=== PATIENT | female | born 2000 | race Caucasian/White ===

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

== ENCOUNTER 2020-08-29 19:27 | Emergency (ER) | payer MEDICAID, OTHER ==
[~2020-08-29] VITALS: Ht 160 cm; Wt 73.5 kg
[2020-08-29 19:35] VITALS: BP_SYST 119
[2020-08-29] MEDS ORDERED: IBUPROFEN 600 MG TABLET PO ONE (20:30)
[2020-08-29 21:02] VITALS: BP_SYST 120
== END 2020-08-29 21:01 | disposition home or self-care (01) ==
LOC: SED 19:27
DX: S86.911A Strain of unspecified muscle(s) and tendon(s) at lower leg level, right leg, initial encounter (principal); W18.39XA Other fall on same level, initial encounter; Y93.66 Activity, soccer; Y92.89 Other specified places as the place of occurrence of the external cause; Y99.8 Other external cause status
CPT/HCPCS: 73552; 99283

== ENCOUNTER 2021-03-13 17:01 | Emergency (ER) | payer MEDICAID, OTHER ==
[~2021-03-13] VITALS: Ht 160 cm; Wt 70.8 kg
[2021-03-13 17:05] VITALS: BP_SYST 114
[2021-03-13 20:49] LABS: EOSINOPHILS # (AUTO) 0.1 K/uL (0.0-0.4); MONOCYTES # (AUTO) 0.4 K/uL (0.0-1.0)
[2021-03-13 21:05] LABS: BASOPHILS % (AUTO) 0.4 % (0.0-2.0); EOSINOPHILS % (AUTO) 0.8 % (0.0-4.0); HEMATOCRIT 38.8 % (36-48); HEMOGLOBIN 13.3 g/dL (12.0-16.0); LYMPHOCYTES # (AUTO) 2.6 K/uL (1.0-5.5); LYMPHOCYTES % (AUTO) 32.6 % (20.5-51.5); MEAN CORPUSCULAR HEMOGLOBIN 32 pg (27-31); MEAN CORPUSCULAR HGB CONC 34 % (32-36); MEAN CORPUSCULAR VOLUME 93 fL (79.0-98.0); MONOCYTES % (AUTO) 4.8 % (1.7-9.3); NEUTROPHILS # (AUTO) 4.9 K/uL (1.8-7.7); NEUTROPHILS % (AUTO) 61.4 % (40.0-70.0); PLATELET COUNT (AUTO) 171 K/uL (130-430); RED BLOOD CELL COUNT(AUTO) 4.18 MIL/uL (4.2-6.2); RED CELL DISTRIBUTION WIDTH 12.9 % (9.0-15.0)
[2021-03-13 21:20] LABS: CALCIUM 8.7 mg/dL (8.4-11.0); CREATININE 0.91 mg/dL (0.55-1.30); POTASSIUM 4.8 mmol/L (3.5-5.1)
[2021-03-13 21:54] VITALS: BP_SYST 110
== END 2021-03-13 21:54 | disposition home or self-care (01) ==
LOC: SED 17:01
DX: S39.012A Strain of muscle, fascia and tendon of lower back, initial encounter (principal); R42 Dizziness and giddiness; V43.52XA Car driver injured in collision with other type car in traffic accident, initial encounter; Y93.89 Activity, other specified; Y92.89 Other specified places as the place of occurrence of the external cause; Y99.8 Other external cause status
CPT/HCPCS: 36415; 80048; 81025; 85025; 93005; 99284

== ENCOUNTER 2021-07-02 09:45 | Emergency (ER) | payer MEDICAID, SELFPAY ==
[~2021-07-02] VITALS: Ht 160 cm; Wt 71.2 kg
[2021-07-02 09:59] VITALS: BP_SYST 127
--- NOTE | 2021-07-02 10:00 | NUR ---
Patient to ER bed TENT1 to gown for evaluation. Side rails up.
--- NOTE | 2021-07-02 10:03 | NUR ---
ER at bedside examining patient.
--- NOTE | 2021-07-02 10:30 | NUR ---
PT PRESENTS TO ED C/O COUGH AND SORE THROAT
[2021-07-02 11:03] LABS: STREPTOCOCCUS A SCREEN (RAPID) NEGATIVE (NEGATIVE)
[2021-07-02] MEDS ORDERED: PSEU30TA36 PO (11:20)
[2021-07-02] MEDS ORDERED: IBUP-1969 PO (11:20)
[2021-07-02 11:40] VITALS: BP_SYST 120
--- NOTE | 2021-07-02 11:40 | NUR ---
Patient given written and verbal discharge instructions and verbalizes understanding. ER MD discussed with patient the results and treatment provided. Patient in stable condition. ID arm band removed. Rx of JASON AGIULERA given. Patient educated on pain management and to follow up with PMD. Pain Scale 0. Opportunity for questions provided and answered. Medication side effect fact sheet provided.
[2021-07-02 14:27] LABS: MONOTEST NEGATIVE (NEGATIVE)
== END 2021-07-02 11:40 | disposition home or self-care (01) ==
LOC: SED 09:45
DX: J02.8 Acute pharyngitis due to other specified organisms (principal); B97.89 Other viral agents as the cause of diseases classified elsewhere
CPT/HCPCS: 36415; 86308-TC; 86403; 87081; 99283

== ENCOUNTER 2021-07-21 22:08 | Emergency (ER) | payer MEDICAID, SELFPAY ==
[~2021-07-21] VITALS: Ht 160 cm; Wt 71.2 kg
[~2021-07-21 22:08] MED LIST: IBUP-1969 PO; PSEU30TA36 PO
[2021-07-21 22:15] VITALS: BP_SYST 125
--- NOTE | 2021-07-21 22:15 | NUR ---
Patient triaged and placed in waiting room. VSS and patient appears in no acute distress at this time. Accompanied by FAM MEMBER, awaiting available bed, and MD notified of need for MSE.
--- NOTE | 2021-07-21 23:23 | NUR ---
Patient to ER bed 5 to gown for evaluation. Side rails up. Report given to TOMMY ALICIA.
--- NOTE | 2021-07-21 23:30 | NUR ---
Security at the bedside to wand the pt.
--- NOTE | 2021-07-21 23:35 | NUR ---
PT BIB FRIEND FOR BEING SI. PT STATES SHE FELT SUICIDAL TODAY AND TOOK 500 OF TYLENOL AND 800 OF ADVIL DUE TO BEING SUICIDAL. PT TOOK THEM AT 2100 TODAY. THIS IS HER FIRST ATTEMPT. STATES SHE HAS BEEN DEPRESSED FOR OVER A YEAR. A&OX4. ACTING APPROPRIATELY AND VSS.
--- NOTE | 2021-07-21 23:50 | NUR ---
# 20 gauge angiocath placed TO RAC. Use of asceptic technique. Opsite placed over site. Blood return noted. Blood for lab drawn from site. Flushed with 10 cc of normal saline. No evidence of infiltration noted. Patient tolerated well.
--- NOTE | 2021-07-22 00:01 | NUR ---
Called Poison Control at [phone] and spoke with YUE. Per recommendations: CHECK TYLENOL LEVEL. USE MUCOMYST IF NEEDED Dr. PERDOMO notified. Will continue to monitor patient.
[2021-07-22] MEDS ORDERED: NACL 0.9% 1,000 ML IV ONE (00:15)
[2021-07-22 01:04] LABS: ALCOHOL, BLOOD < 3 mg/dL (<10)
[2021-07-22 01:31] LABS: ACETAMINOPHEN < 1 ug/mL (1-30)
[2021-07-22 01:46] LABS: CALCIUM 8.7 mg/dL (8.4-11.0); CREATININE 0.78 mg/dL (0.55-1.30); POTASSIUM 3.6 mmol/L (3.5-5.1)
[2021-07-22 01:53] LABS: HEMATOCRIT 41.6 % (36-48); HEMOGLOBIN 14.1 g/dL (12.0-16.0); MEAN CORPUSCULAR HEMOGLOBIN 31 pg (27-31); MEAN CORPUSCULAR VOLUME 90 fL (79.0-98.0); RED BLOOD CELL COUNT(AUTO) 4.61 MIL/uL (4.2-6.2); WHITE BLOOD COUNT (AUTO) 12.2 K/uL (4.8-10.8)
[2021-07-22 01:54] LABS: BASOPHILS % (AUTO) 1.3 % (0.0-2.0); EOSINOPHILS % (AUTO) 2.3 % (0.0-4.0); LYMPHOCYTES % (AUTO) 10.1 % (20.5-51.5); MEAN CORPUSCULAR HGB CONC 34 % (32-36); MONOCYTES % (AUTO) 2.4 % (1.7-9.3); NEUTROPHILS % (AUTO) 83.9 % (40.0-70.0); PLATELET COUNT (AUTO) 214 K/uL (130-430); RED CELL DISTRIBUTION WIDTH 12.7 % (9.0-15.0)
[2021-07-22 01:55] LABS: BASOPHILS # (AUTO) 0.2 K/uL (0.0-0.2); EOSINOPHILS # (AUTO) 0.3 K/uL (0.0-0.4); LYMPHOCYTES # (AUTO) 1.2 K/uL (1.0-5.5); MONOCYTES # (AUTO) 0.3 K/uL (0.0-1.0); NEUTROPHILS # (AUTO) 10.3 K/uL (1.8-7.7)
--- NOTE | 2021-07-22 02:30 | NUR ---
ER at bedside examining patient.
--- NOTE | 2021-07-22 02:50 | NUR ---
POISON CONTROL CALLED BACK. SPOKE WITH DEVIN. CLEARED FROM POISON CONTROL DUE TO THE LAB RESULTS.
--- NOTE | 2021-07-22 03:10 | NUR ---
HAND BRUSH FILLER WILL CALLED FOR A PSYCH EVAL. NOTE PUT IN BY WILL.
--- NOTE | 2021-07-22 05:00 | NUR ---
PT RESTING IN BED, VSS
[2021-07-22 05:39] LABS: BARBITURATE, URINE NEGATIVE (NEG <=200); BENZODIAZEPINE, URINE NEGATIVE (NEG <=150); CANNABINOID, URINE NEGATIVE (NEG <=50); COCAINE, URINE NEGATIVE (NEG <=150); METHAMPHETAMINES SCREEN,URINE NEGATIVE (NEG <=500); OPIATE, URINE NEGATIVE (NEG <=100); PHENCYCLIDINE SCREEN,URINE NEGATIVE (NEG <=25); UR TRICYCLIC ANTIDEPRESSANTS NEGATIVE (NEG <=300); URINE AMPHETAMINE NEGATIVE (NEG <=500); URINE METHADONE NEGATIVE (NEG <=200); URINE OXYCODONE SCREEN NEGATIVE (NEG <=100); URINE PROPOXYPHENE SCREEN NEGATIVE (NEG <=300)
--- NOTE | 2021-07-22 07:08 | NUR ---
REPORT GIVEN TO ARISTIDES ALICIA
--- NOTE | 2021-07-22 07:12 | NUR ---
PT WITH EYES CLOSED, EASILY AROUSABLE. FAMILY FRIEND AT BEDSIDE TO LOOK AFTER PATIENT. PT DENIES ANY PAIN, BUT CONTINUES TO REPORT SUICIDAL THOUGHTS AND FEELING DEPRESSED. NO PLAN OF ACTION AT THIS TIME. WAITING FOR PSYCH CONSULT, BREAKFAST ORDERED. WILL CONT TO MONITOR.
--- NOTE | 2021-07-22 08:07 | NUR ---
PSYCHOLOGIST-DR HDEZ AT BEDSIDE FOR EXAM.
--- NOTE | 2021-07-22 08:37 | NUR ---
Report given to Kendall ALICIA, updated on status, labs, and vitals. Pt stable for transfer.
--- NOTE | 2021-07-22 09:15 | NUR ---
pt ate breakfast 100%.
--- NOTE | 2021-07-22 09:46 | NUR ---
LUNCH ORDERED, PT INNAD. MCDANIEL.
--- NOTE | 2021-07-22 12:06 | NUR ---
Patient to be transferred to [facility]. Is being transferred due to higher level of care. Receiving facility has accepting physician and available space. ER physician has signed transfer form. Patient or responsible alliance party has agreed to transfer and signed form. Patient belongings inventoried and will be sent with patient. Copy of nursing notes, lab reports, EKG, Physicians Orders and X-rays to be sent with patient. Report called to at receiving facility. Receiving physician is . ambulance service has been called for transfer.
[2021-07-22 12:09] VITALS: BP_SYST 128
--- NOTE | 2021-07-23 00:22 | NUR ---
DEPARTMENT OF MENTAL HEALTH CALLED WANTING TO KNOW IF PATIENT IS STILL HERE.
== END 2021-07-22 12:09 ==
LOC: SED 22:08
DX: R45.851 Suicidal ideations (principal); F32.9 Major depressive disorder, single episode, unspecified; Z79.899 Other long term (current) drug therapy; Z20.822 Contact with and (suspected) exposure to COVID-19
CPT/HCPCS: 36415; 80048; 80307; 84703; 85025; 87426; 96360; 99285; G0480; G0481; G0482; J7030

== ENCOUNTER 2022-12-24 13:42 | Emergency (ER) | payer MEDICAID ==
[~2022-12-24] VITALS: Ht 167.6 cm; Wt 83.0 kg
[2022-12-24 13:57] VITALS: BP_SYST 122
[2022-12-24] MEDS ORDERED: IBUP-1969 PO (15:08)
[2022-12-24 15:21] VITALS: BP_SYST 122
== END 2022-12-24 15:22 | disposition home or self-care (01) ==
LOC: SED 13:42
DX: S93.401A Sprain of unspecified ligament of right ankle, initial encounter (principal); Z79.899 Other long term (current) drug therapy; W10.9XXA Fall (on) (from) unspecified stairs and steps, initial encounter; Y93.89 Activity, other specified; Y92.89 Other specified places as the place of occurrence of the external cause; Y99.8 Other external cause status
CPT/HCPCS: 99283